=== PATIENT | male | born 1950 | race Caucasian/White ===

== ENCOUNTER → 2020-06-12 | Outpatient (CLI) | payer OTHER ==
--- NOTE | 2020-06-12 22:16 | MR ---
EXAMINATION TYPE: MR lumbar spine wo con DATE OF EXAM: 06/12/2020 COMPARISON: None HISTORY: Acute Right-Sided Low Back Pain TECHNIQUE: Multiplanar, multisequence images of the lumbar spine were acquired. T12-L1: Small left posterior paracentral disc herniation causes minimal anterior mass effect on the t hecal sac. L1-L2: Posterior broad-based disc bulge causes mild anterior mass effect on the thecal sac. No signif icant foraminal encroachment or spinal stenosis. L2-L3: Posterior extension endplate disc complex results in some mild anterior mass effect on the the omar sac. No significant spinal stenosis. There is some facet arthropathy change. Circumferential exte nsion endplate disc complex encroaches somewhat on the foramina. L3-L4: Posterior broad-based disc bulge causes mild anterior mass effect on the thecal sac. There is facet arthropathy change with hypertrophy ligamentum flavum. Circumferential extension of endplate di sc complex encroaches on the neural foramina. No significant spinal stenosis. L4-L5: Facet arthropathy with hypertrophy ligamentum flavum causes posterior lateral mass effect on t he thecal sac. Circumferential posterior disc bulge causes minimal anterior mass effect on the thecal sac. There is a trefoil appearance of the thecal sac. Listhesis contributes cause bilateral foramina l encroachment. L5-S1: Posterior extension endplate disc complex causes anterior mass effect on the thecal sac. Circu mferential extension endplate disc complex results in bilateral foraminal encroachment. There is some facet arthropathy change. No significant spinal stenosis. Lumbar segments are intact. No paraspinal masses are identified. Conus medullaris has a normal appe arance. Anterolisthesis grade 1 L4-5, retrolisthesis grade 1 L5-S1. There is multilevel spondylosis w ith endplate discogenic marrow signal change. Large hemangioma present within the L3 vertebral body, Schmorl's node present inferior endplate of L1. Loss of disc height and signal is present at interver tebral levels. Parapelvic cysts are present within the left kidney. Diverticular changes extensive in the sigmoid colon. Probable geode present within the acetabular roof of the right hip. There are ost eoarthritic changes with marginal spurring and joint space loss within both hips. Subchondral geode f ormation present within the femoral head on the left. IMPRESSION: Degenerative disc disease, facet arthropathy, foraminal encroachment as described. Osteoarthritis wit hin the hips.
== END | disposition home or self-care (01) ==
LOC: RADMRIMAIN 17:24
PROVIDERS: ATTEND Orthopaedic Surgery
DX: M51.36 Other intervertebral disc degeneration, lumbar region (principal); M47.816 Spondylosis without myelopathy or radiculopathy, lumbar region
CPT/HCPCS: 72148

== ENCOUNTER 2021-11-22 12:40 | Emergency (ER) | payer MEDICARE ==
[2021-11-22 12:55] VITALS: RESP 18; TEMP 97
--- NOTE | 2021-11-22 13:39 | ED ---
General Adult HPI - General Source: patient, EMS Limitations: altered mental status <PeegeorgeAleshae D - Last Filed: 11/22/21 13:42> <Shankar Roa - Last Filed: 11/23/21 05:20> - General Chief complaint: Psychiatric Symptoms Stated complaint: dementia/ mental health Time Seen by Provider: 11/22/21 13:01 - History of Present Illness Initial comments: Dictation was produced using [employer] dictation software. please excuse any gr ammatical, word or spelling errors. Chief Complaint: 71-year-old male sent into the emergency Department for aggressive behavior History of Present Illness: Patient 71-year-old male who has past medical history of stroke, dementia and aggressive behavior. Normally his aggressive behavior is easily managed with Haldol and Ativan however today did not work. Patient normally gets aggressive after family friends and other visitors leave the premises. He is not a reliable historian. History of present illness obtained from Dr. Da Silva who called ahead. Dr. Da Silva is the physician at [facility]. She states that patient was real aggressive and combative with staff. There is concern about him and staff safety. Dr. Da Silva reports he is being sent here for psychiatric evaluation. Patient has history of dementia and stroke and at baseline is normally aggressive and combative. Unable to obtain ROS secondary to mental status. PHYSICAL EXAM: General Impression: Alert and oriented x1/4, not in acute distress HEENT: Normocephalic atraumatic, extra-ocular movements intact, pupils equal and reactive to light bilaterally, mucous membranes moist. Cardiovascular: Heart regular rate and rhythm Chest: Able to complete full sentences, no retractions, no tachypnea Abdomen: abdomen soft, non-tender, non-distended, no organomegaly Musculoskeletal: Pulses present and equal in all extremities, no peripheral edema Motor: no focal deficits noted Neurological: CN II-XII grossly intact, no focal motor or sensory deficits noted Skin: Intact with no visualized rashes Psych: Rambling Speech ED course: Patient is 69-year-old male presents to the emergency department for aggressive behavior. Patient has history of dementia and CVA and typically aggressive behavior. His aggressive behavior is usually managed with Haldol and Ativan however today patient became aggressive and those medications didn't work. There was concern of patient and staff safety. Vital signs upon arrival are within acceptable limits. EKG interpretation: Ventricular rate 89, sinus rhythm,. Interval to 34, QS 105, QTc 436. no QTC prolongation, no ST or T-wave changes noted. EKG compared to 09/05/2021 showing no changes. Overall, this EKG is unremarkable (Barney Arshad) - Related Data Home Medications Medication Instructions Recorded Confirmed ALPRAZolam [Xanax] 0.25 mg PO BID@0600,2200 11/22/21 11/22/21 ALPRAZolam [Xanax] 0.5 mg PO DAILY@1200 11/22/21 11/22/21 Acetaminophen Tab [Tylenol] 650 mg PO Q6H PRN 11/22/21 11/22/21 Aspirin EC [Ecotrin Low Dose] 81 mg PO DAILY 11/22/21 11/22/21 Atorvastatin [Lipitor] 40 mg PO HS 11/22/21 11/22/21 Clopidogrel [Plavix] 75 mg PO HS 11/22/21 11/22/21 Cyanocobalamin [Vitamin B-12] 500 mcg PO DAILY 11/22/21 11/22/21 Donepezil HCl [Aricept] 10 mg PO DAILY 11/22/21 11/22/21 Famotidine [Pepcid] 20 mg PO DAILY 11/22/21 11/22/21 Haldol 5mg/Ml 2.5 mg IM BID PRN 11/22/21 11/22/21 Lactose-Reduced Food [Ensure Plus] 240 ml PO BID@0900,2100 11/22/21 11/22/21 Megestrol [Megace] 800 mg PO DAILY 11/22/21 11/22/21 Melatonin 10 mg PO HS 11/22/21 11/22/21 Metoprolol Succinate [Toprol XL] 25 mg PO DAILY 11/22/21 11/22/21 Mirtazapine 7.5 mg PO DAILY@1700 11/22/21 11/22/21 QUEtiapine [SEROquel] 12.5 mg PO BID@0900,2100 11/22/21 11/22/21 Selsun Blue Shampoo 1 applic TOPICAL MOTH@2100 11/22/21 11/22/21 Sennosides [Senna] 8.6 mg PO HS PRN 11/22/21 11/22/21 Zguard 1 applic TOPICAL BID 11/22/21 11/22/21 Zguard 1 applic TOPICAL DAILY PRN 11/22/21 11/22/21 traZODone HCL 50 mg PO HS 11/22/21 11/22/21 Allergies Allergy/AdvReac Type Severity Reaction Status Date / Time No Known Allergies Allergy Verified 11/22/21 13:21 Review of Systems ROS Other: All systems not noted in ROS Statement are negative. <Barney Arshad - Last Filed: 11/22/21 13:42> ROS Other: All systems not noted in ROS Statement are negative. <Shankar Roa - Last Filed: 11/23/21 05:20> ROS Statement: Those systems with pertinent positive or pertinent negative responses have been documented in the HPI. Past Medical History Past Medical History: Unable to Obtain Additional Past Medical History / Comment(s): hemorrhoids History of Any Multi-Drug Resistant Organisms: None Reported Past Surgical History: Unable to Obtain Additional Past Surgical History / Comment(s): Hip Replacement Jul 2021 Past Psychological History: Unable to Obtain Smoking Status: Current every day smoker <Barney Arshad - Last Filed: 11/22/21 13:42> General Exam Limitations: altered mental status <Barney Arshad - Last Filed: 11/22/21 13:42> Course Vital Signs 11/22/21 11/22/21 11/22/21 12:43 12:56 14:10 Temperature 97.0 F L Pulse Rate 98 88 Respiratory 18 18 Rate Blood Pressure 89/65 108/69 O2 Sat by Pulse 95 97 Oximetry 11/22/21 11/22/21 15:42 17:13 Temperature Pulse Rate 86 Respiratory 18 Rate Blood Pressure 116/86 121/67 O2 Sat by Pulse 97 Oximetry Medical Decision Making - Lab Data Result diagrams: 11/22/21 13:34 11/22/21 13:34 <Shankar Roa - Last Filed: 11/23/21 05:20> - Medical Decision Making 71-year-old male who was seen and evaluated by psychiatry here in the ER. Patient is stable for discharge home with medically clear for psychiatric evaluation. Patient seen and evaluated and can be discharged home (Roskopp,Shankar B) - Lab Data Lab Results 11/22/21 11/22/21 11/22/21 Range/Units 13:34 13:34 13:35 WBC 11.0 H (3.8-10.6) k/uL RBC 4.30 (4.30-5.90) m/uL Hgb 13.9 (13.0-17.5) gm/dL Hct 41.4 (39.0-53.0) % MCV 96.3 (80.0-100.0) fL MCH 32.3 (25.0-35.0) pg MCHC 33.5 (31.0-37.0) g/dL RDW 15.4 (11.5-15.5) % Plt Count 214 (150-450) k/uL MPV 8.5 Neutrophils % 73 % Lymphocytes % 15 % Monocytes % 8 % Eosinophils % 2 % Basophils % 1 % Neutrophils # 8.0 H (1.3-7.7) k/uL Lymphocytes # 1.6 (1.0-4.8) k/uL Monocytes # 0.9 (0-1.0) k/uL Eosinophils # 0.2 (0-0.7) k/uL Basophils # 0.1 (0-0.2) k/uL Sodium 138 (137-145) mmol/L Potassium 3.8 (3.5-5.1) mmol/L Chloride 109 H (98-107) mmol/L Carbon Dioxide 23 (22-30) mmol/L Anion Gap 6 mmol/L BUN 10 (9-20) mg/dL Creatinine 0.94 (0.66-1.25) mg/dL Est GFR (CKD-EPI)AfAm >90 (>60 ml/min/1.73 sqM) Est GFR (CKD-EPI)NonAf 81 (>60 ml/min/1.73 sqM) Glucose 84 (74-99) mg/dL Calcium 8.9 (8.4-10.2) mg/dL Urine Color Urine Appearance (Clear) Urine pH (5.0-8.0) Ur Specific Strawberry (1.001-1.035) Urine Protein (Negative) Urine Glucose (UA) (Negative) Urine Ketones (Negative) Urine Blood (Negative) Urine Nitrite (Negative) Urine Bilirubin (Negative) Urine Urobilinogen (<2.0) mg/dL Ur Leukocyte Esterase (Negative) Urine RBC (0-5) /hpf Urine WBC (0-5) /hpf Ur Squamous Epith Cells (0-4) /hpf Urine Bacteria (None) /hpf Hyaline Casts (0-2) /lpf Urine Mucus (None) /hpf Urine Opiates Screen (NotDetected) Ur Oxycodone Screen (NotDetected) Urine Methadone Screen (NotDetected) Ur Propoxyphene Screen (NotDetected) Ur Barbiturates Screen (NotDetected) U Tricyclic Antidepress (NotDetected) Ur Phencyclidine Scrn (NotDetected) Ur Amphetamines Screen (NotDetected) U Methamphetamines Scrn (NotDetected) U Benzodiazepines Scrn (NotDetected) Urine Cocaine Screen (NotDetected) U Marijuana (THC) Screen (NotDetected) Coronavirus (PCR) Not Detected (Not Detectd) 11/22/21 Range/Units 14:26 WBC (3.8-10.6) k/uL RBC (4.30-5.90) m/uL Hgb (13.0-17.5) gm/dL Hct (39.0-53.0) % MCV (80.0-100.0) fL MCH (25.0-35.0) pg MCHC (31.0-37.0) g/dL RDW (11.5-15.5) % Plt Count (150-450) k/uL MPV Neutrophils % % Lymphocytes % % Monocytes % % Eosinophils % % Basophils % % Neutrophils # (1.3-7.7) k/uL Lymphocytes # (1.0-4.8) k/uL Monocytes # (0-1.0) k/uL Eosinophils # (0-0.7) k/uL Basophils # (0-0.2) k/uL Sodium (137-145) mmol/L Potassium (3.5-5.1) mmol/L Chloride (98-107) mmol/L Carbon Dioxide (22-30) mmol/L Anion Gap mmol/L BUN (9-20) mg/dL Creatinine (0.66-1.25) mg/dL Est GFR (CKD-EPI)AfAm (>60 ml/min/1.73 sqM) Est GFR (CKD-EPI)NonAf (>60 ml/min/1.73 sqM) Glucose (74-99) mg/dL Calcium (8.4-10.2) mg/dL Urine Color Yellow Urine Appearance Clear (Clear) Urine pH 6.5 (5.0-8.0) Ur Specific Strawberry 1.022 (1.001-1.035) Urine Protein 1+ H (Negative) Urine Glucose (UA) Negative (Negative) Urine Ketones Negative (Negative) Urine Blood Negative (Negative) Urine Nitrite Negative (Negative) Urine Bilirubin Negative (Negative) Urine Urobilinogen <2.0 (<2.0) mg/dL Ur Leukocyte Esterase Negative (Negative) Urine RBC 1 (0-5) /hpf Urine WBC 4 (0-5) /hpf Ur Squamous Epith Cells 1 (0-4) /hpf Urine Bacteria Rare H (None) /hpf Hyaline Casts 22 H (0-2) /lpf Urine Mucus Many H (None) /hpf Urine Opiates Screen Not Detected (NotDetected) Ur Oxycodone Screen Not Detected (NotDetected) Urine Methadone Screen Not Detected (NotDetected) Ur Propoxyphene Screen Not Detected (NotDetected) Ur Barbiturates Screen Not Detected (NotDetected) U Tricyclic Antidepress Not Detected (NotDetected) Ur Phencyclidine Scrn Not Detected (NotDetected) Ur Amphetamines Screen Not Detected (NotDetected) U Methamphetamines Scrn Not Detected (NotDetected) U Benzodiazepines Scrn Detected H (NotDetected) Urine Cocaine Screen Not Detected (NotDetected) U Marijuana (THC) Screen Not Detected (NotDetected) Coronavirus (PCR) (Not Detectd) Disposition <Barney Arshad D - Last Filed: 11/22/21 13:42> Is patient prescribed a controlled substance at d/c from ED?: No <Shankar Roa - Last Filed: 11/23/21 05:20> Clinical Impression: Mood disorder Disposition: HOME SELF-CARE Condition: Fair Instructions (If sedation given, give patient instructions): Mood Disorders ( ED) Referrals: Margaret Da Silva MD [Primary Care Provider] - 1-2 days
[2021-11-22] MEDS ORDERED: SODIUM CHLORIDE 0.9% 1,000 ML IV STA (13:42)
[2021-11-22 13:54] LABS: Basophils # (A) 0.1 k/uL (0-0.2); Basophils % (A) 1 %; Eosinophils # (A) 0.2 k/uL (0-0.7); Eosinophils % (A) 2 %; HCT 41.4 % (39.0-53.0); HGB 13.9 gm/dL (13.0-17.5); Lymphocytes # (A) 1.6 k/uL (1.0-4.8); Lymphocytes % (A) 15 %; MCH 32.3 pg (25.0-35.0); MCHC 33.5 g/dL (31.0-37.0); MCV 96.3 fL (80.0-100.0); Mean Platelet Volume 8.5; Monocytes # (A) 0.9 k/uL (0-1.0); Monocytes % (A) 8 %; Neutrophils % (A) 73 %; Platelet Count 214 k/uL (150-450); RDW 15.4 % (11.5-15.5)
[2021-11-22 14:12] LABS: African American GFR (CKD) >90 (>60 ml/min/1.73 sqM); Anion Gap 6 mmol/L; Blood Urea Nitrogen 10 mg/dL (9-20); Calcium 8.9 mg/dL (8.4-10.2); Carbon Dioxide 23 mmol/L (22-30); Chloride 109 mmol/L (98-107); Glucose 84 mg/dL (74-99); Non-African American GFR(CKD) 81 (>60 ml/min/1.73 sqM); Potassium 3.8 mmol/L (3.5-5.1); Sodium 138 mmol/L (137-145)
--- NOTE | 2021-11-22 14:29 | CT ---
EXAMINATION TYPE: CT brain wo con DATE OF EXAM: 11/22/2021 HISTORY: Altered mental status CT DLP: 1104.4 mGycm. Automated Exposure Control for Dose Reduction was Utilized. TECHNIQUE: CT scan of the head is performed without contrast. COMPARISON: CT brain September 05, 2021. FINDINGS: There is no acute intracranial hemorrhage or midline shift identified. There is mild diff use ventricular and sulcal prominence consistent with diffuse age-related cerebral atrophy. There is mild low-attenuation in the periventricular white matter consistent with chronic small vessel ischem ic change. There is now old infarct or focal encephalomalacia in the left temporoparietal region. Demarco e dependent opacification or fluid in the left maxillary sinus redemonstrated. Globes are intact bi laterally. IMPRESSION: No acute intracranial hemorrhage or midline shift. There is mild diffuse age-related ce rebral atrophy and chronic small vessel ischemic change redemonstrated. Old infarct left parietal te mporal region now present.
[2021-11-22 14:50] LABS: Appearance,Urine Clear (Clear); Bacteria,Urine Rare /hpf; Bilirubin,Urine Negative (Negative); Blood,Urine Negative (Negative); Color,Urine Yellow; Glucose,Urine (UA) Negative (Negative); Hyaline Casts,Urine 22 /lpf (0-2); Ketones,Urine Negative (Negative); Leukocyte Esterase,Urine Negative (Negative); Mucus,Urine Many /hpf; Nitrite,Urine Negative (Negative); PH, Urine 6.5 (5.0-8.0); Protein,Urine 1+ (Negative); RBC,Urine 1 /hpf (0-5); Specific Gravity,Urine 1.022 (1.001-1.035); Squamous Epithelial Cell,Urine 1 /hpf (0-4); Urobilinogen,Urine <2.0 mg/dL (<2.0); WBC,Urine 4 /hpf (0-5)
[2021-11-22 15:08] LABS: Amphetamine Screen,Urine Not Detected (NotDetected); Barbiturate Screen,Urine Not Detected (NotDetected); Benzodiazepines Screen,Urine Detected (NotDetected); Cocaine Screen,Urine Not Detected (NotDetected); Methadone Screen, Urine Not Detected (NotDetected); Opiate Screen,Urine Not Detected (NotDetected); Oxycodone Screen, Urine Not Detected (NotDetected); Phencyclidine Screen,Urine Not Detected (NotDetected); Tricyclic Antidepressant,Urine Not Detected (NotDetected); Urn Cannabinoid Scrn Not Detected (NotDetected)
[2021-11-22 15:43] VITALS: PULSE 86
[2021-11-22 17:14] VITALS: BP 121/67
== END 2021-11-22 22:48 | disposition home or self-care (01) ==
LOC: EC 12:40
DX: F39 Unspecified mood [affective] disorder (principal); F03.90 Unspecified dementia, unspecified severity, without behavioral disturbance, psychotic disturbance, mood disturbance, and anxiety; F17.200 Nicotine dependence, unspecified, uncomplicated; Z20.822 Contact with and (suspected) exposure to COVID-19; Z79.82 Long term (current) use of aspirin; Z79.02 Long term (current) use of antithrombotics/antiplatelets
CPT/HCPCS: 36415; 70450; 80048; 80306; 81001; 82075; 85025; 87635; 93005; 96360; 96361; 99285

== ENCOUNTER 2021-11-23 10:56 | Emergency (ER) | payer MEDICARE ==
--- NOTE | 2021-11-23 13:48 | ED ---
General Adult HPI - General Source: patient, EMS, RN notes reviewed, old records reviewed Mode of arrival: EMS Limitations: altered mental status <Shankar Davila - Last Filed: 11/23/21 14:50> <Zachary Serrato - Last Filed: 11/25/21 12:42> - General Chief complaint: Psychiatric Symptoms Stated complaint: Mental Health Eval. Time Seen by Provider: 11/23/21 11:00 - History of Present Illness Initial comments: This is a 71-year-old male who presents emergency Department from the prison. Dr. Da Silva sent the patient in even though the patient was in the emergency department yesterday and discharged back to facility the patient continues to have episodes where he is getting violent with staff and Dr. Thakur wanted the patient to go to a psychiatric facility and she believes [facility] is willing to take the patient if they come to the emergency department first so she sent him in. Patient himself is alert and oriented 0 so is unable to give any history we have no further history at this time. (Shankar Davila) - Related Data Home Medications Medication Instructions Recorded Confirmed ALPRAZolam [Xanax] 0.5 mg PO Q8H 11/22/21 11/23/21 Acetaminophen Tab [Tylenol] 650 mg PO Q6H PRN 11/22/21 11/23/21 Aspirin EC [Ecotrin Low Dose] 81 mg PO DAILY 11/22/21 11/23/21 Atorvastatin [Lipitor] 40 mg PO HS 11/22/21 11/23/21 Clopidogrel [Plavix] 75 mg PO HS 11/22/21 11/23/21 Cyanocobalamin [Vitamin B-12] 500 mcg PO DAILY 11/22/21 11/23/21 Donepezil HCl [Aricept] 10 mg PO DAILY 11/22/21 11/23/21 Famotidine [Pepcid] 20 mg PO DAILY 11/22/21 11/23/21 Haldol 5mg/Ml 2.5 mg IM BID PRN 11/22/21 11/23/21 Lactose-Reduced Food [Ensure Plus] 240 ml PO BID 11/22/21 11/23/21 Megestrol [Megace] 800 mg PO DAILY 11/22/21 11/23/21 Melatonin 10 mg PO HS 11/22/21 11/23/21 Metoprolol Succinate [Toprol XL] 25 mg PO DAILY 11/22/21 11/23/21 Mirtazapine 7.5 mg PO DAILY@1700 11/22/21 11/23/21 QUEtiapine [SEROquel] 12.5 mg PO BID 11/22/21 11/23/21 Selsun Blue Shampoo 1 applic TOPICAL MOTH@2100 11/22/21 11/23/21 Sennosides [Senna] 8.6 mg PO HS PRN 11/22/21 11/23/21 Zguard 1 applic TOPICAL BID 11/22/21 11/23/21 Zguard 1 applic TOPICAL DAILY PRN 11/22/21 11/23/21 traZODone HCL 50 mg PO HS 11/22/21 11/23/21 Divalproex ER [Depakote ER] 250 mg PO DAILY 11/23/21 11/23/21 Ketoconazole 2% Shampoo [Nizoral] 1 applic TOPICAL MOTH 11/23/21 11/23/21 Allergies Allergy/AdvReac Type Severity Reaction Status Date / Time No Known Allergies Allergy Verified 11/23/21 12:50 Review of Systems ROS Other: All systems not noted in ROS Statement are negative. <Shankar Davila - Last Filed: 11/23/21 14:50> ROS Other: All systems not noted in ROS Statement are negative. <Zachary Serrato - Last Filed: 11/25/21 12:42> ROS Statement: Those systems with pertinent positive or pertinent negative responses have been documented in the HPI. Past Medical History Past Medical History: Unable to Obtain, Dementia, Hyperlipidemia, Hypertension Additional Past Medical History / Comment(s): hemorrhoids, encephalopathy, cardiomyapothy, TIA History of Any Multi-Drug Resistant Organisms: None Reported Past Surgical History: Unable to Obtain Additional Past Surgical History / Comment(s): Hip Replacement Jul 2021 Past Psychological History: Depression Smoking Status: Current every day smoker Past Alcohol Use History: None Reported Past Drug Use History: None Reported <Shankar Davila - Last Filed: 11/23/21 14:50> General Exam Limitations: altered mental status <Shankar Davila - Last Filed: 11/23/21 14:50> - General Exam Comments Initial Comments: GENERAL: Patient is well-developed and well-nourished. Patient is nontoxic and well- hydrated and is in no acute distress. ENT: Neck is soft and supple. No significant lymphadenopathy is noted. Oropharynx is clear. Moist mucous membranes. Neck has full range of motion without eliciting any pain. EYES: The sclera were anicteric and conjunctiva were pink and moist. Extraocular movements were intact and pupils were equal round and reactive to light. Eyelids were unremarkable. PULMONARY: Unlabored respirations. Good breath sounds bilaterally. No audible rales rhonchi or wheezing was noted. CARDIOVASCULAR: There is a regular rate and rhythm without any murmurs gallops or rubs. ABDOMEN: Soft and nontender with normal bowel sounds. SKIN: Skin is clear with no lesions or rashes and otherwise unremarkable. NEUROLOGIC: Patient is alert and oriented 0. Cranial nerves II through XII are grossly intact. Motor and sensory are also intact. Normal speech, volume and content. Symmetrical smile. MUSCULOSKELETAL: Normal extremities with adequate strength and full range of motion. No lower extremity swelling or edema. No calf tenderness. LYMPHATICS: No significant lymphadenopathy is noted PSYCHIATRIC: Unable to assess. (Shankar Davila) Course Vital Signs 11/23/21 11/24/21 11/24/21 10:58 06:00 08:09 Temperature 98.4 F 98 F Pulse Rate 122 H 89 88 Respiratory 16 18 18 Rate Blood Pressure 114/87 117/84 121/81 O2 Sat by Pulse 97 96 96 Oximetry 11/24/21 11/24/21 11/24/21 12:05 16:24 16:25 Temperature Pulse Rate 89 77 77 Respiratory 16 10 L 20 Rate Blood Pressure 103/72 103/76 O2 Sat by Pulse 98 98 Oximetry 11/24/21 11/24/21 11/25/21 19:40 22:46 07:40 Temperature Pulse Rate 97 89 87 Respiratory 16 20 17 Rate Blood Pressure 125/87 99/72 110/77 O2 Sat by Pulse 98 100 99 Oximetry 11/25/21 11:46 Temperature Pulse Rate 94 Respiratory 17 Rate Blood Pressure 98/68 O2 Sat by Pulse 93 L Oximetry Medical Decision Making <Shankar Davila - Last Filed: 11/23/21 14:50> - Lab Data Result diagrams: 11/25/21 10:54 11/25/21 10:54 <Zachary Serrato - Last Filed: 11/25/21 12:42> - Medical Decision Making EPS evaluated the patient and determined the patient needed to be transferred to an inpatient facility. (Shankar Davila) Patient had tonic-clonic seizure in the emergency department this was witnessed. Laboratory studies were repeated as well as head CT. Laboratory studies reflect seizure activity without any other acute abnormality. He has a head CT which is negative for acute process. This seizure is secondary to being off both of his Depakote and his Xanax. He is given 2 mg of Ativan in the emergency department and his medications are started while he is awaiting transfer. The best disposition for this patient is geriatric psych. (Zachary Serrato) - Lab Data Lab Results 11/23/21 11/23/21 11/23/21 Range/Units 14:17 14:17 16:03 WBC (3.8-10.6) k/uL RBC (4.30-5.90) m/uL Hgb (13.0-17.5) gm/dL Hct (39.0-53.0) % MCV (80.0-100.0) fL MCH (25.0-35.0) pg MCHC (31.0-37.0) g/dL RDW (11.5-15.5) % Plt Count (150-450) k/uL MPV Neutrophils % % Lymphocytes % % Monocytes % % Eosinophils % % Basophils % % Neutrophils # (1.3-7.7) k/uL Lymphocytes # (1.0-4.8) k/uL Monocytes # (0-1.0) k/uL Eosinophils # (0-0.7) k/uL Basophils # (0-0.2) k/uL Hypochromasia Macrocytosis Sodium (137-145) mmol/L Potassium (3.5-5.1) mmol/L Chloride (98-107) mmol/L Carbon Dioxide (22-30) mmol/L Anion Gap mmol/L BUN (9-20) mg/dL Creatinine (0.66-1.25) mg/dL Est GFR (CKD-EPI)AfAm (>60 ml/min/1.73 sqM) Est GFR (CKD-EPI)NonAf (>60 ml/min/1.73 sqM) Glucose (74-99) mg/dL Calcium (8.4-10.2) mg/dL Magnesium (1.6-2.3) mg/dL Total Bilirubin (0.2-1.3) mg/dL AST (17-59) U/L ALT (4-49) U/L Alkaline Phosphatase (38-126) U/L Total Protein (6.3-8.2) g/dL Albumin (3.5-5.0) g/dL Urine Color Yellow Urine Appearance Cloudy (Clear) Urine pH 6.0 (5.0-8.0) Ur Specific [place] 1.019 (1.001-1.035) Urine Protein Trace H (Negative) Urine Glucose (UA) Negative (Negative) Urine Ketones Negative (Negative) Urine Blood Small H (Negative) Urine Nitrite Negative (Negative) Urine Bilirubin Negative (Negative) Urine Urobilinogen <2.0 (<2.0) mg/dL Ur Leukocyte Esterase Negative (Negative) Urine RBC 15 H (0-5) /hpf Urine WBC 3 (0-5) /hpf Calcium Oxalate Crystal Moderate H (None) /hpf Urine Bacteria Rare H (None) /hpf Hyaline Casts 3 H (0-2) /lpf Urine Mucus Many H (None) /hpf Urine Opiates Screen Not Detected (NotDetected) Ur Oxycodone Screen Not Detected (NotDetected) Urine Methadone Screen Not Detected (NotDetected) Ur Propoxyphene Screen Not Detected (NotDetected) Ur Barbiturates Screen Not Detected (NotDetected) Valproic Acid ug/mL U Tricyclic Antidepress Not Detected (NotDetected) Ur Phencyclidine Scrn Not Detected (NotDetected) Ur Amphetamines Screen Not Detected (NotDetected) U Methamphetamines Scrn Not Detected (NotDetected) U Benzodiazepines Scrn Detected H (NotDetected) Urine Cocaine Screen Not Detected (NotDetected) U Marijuana (THC) Screen Not Detected (NotDetected) Coronavirus (PCR) Not Detected (Not Detectd) 11/24/21 11/24/21 11/25/21 Range/Units 14:10 14:10 09:15 WBC 10.8 H 9.2 (3.8-10.6) k/uL RBC 4.16 L 4.28 L (4.30-5.90) m/uL Hgb 13.2 14.0 (13.0-17.5) gm/dL Hct 40.2 41.3 (39.0-53.0) % MCV 96.7 96.5 (80.0-100.0) fL MCH 31.9 32.7 (25.0-35.0) pg MCHC 32.9 33.8 (31.0-37.0) g/dL RDW 15.0 15.4 (11.5-15.5) % Plt Count 218 254 (150-450) k/uL MPV 7.8 7.6 Neutrophils % 67 68 % Lymphocytes % 20 20 % Monocytes % 9 8 % Eosinophils % 2 2 % Basophils % 1 1 % Neutrophils # 7.3 6.2 (1.3-7.7) k/uL Lymphocytes # 2.2 1.9 (1.0-4.8) k/uL Monocytes # 0.9 0.7 (0-1.0) k/uL Eosinophils # 0.2 0.1 (0-0.7) k/uL Basophils # 0.1 0.1 (0-0.2) k/uL Hypochromasia Macrocytosis Sodium 141 (137-145) mmol/L Potassium 3.8 (3.5-5.1) mmol/L Chloride 110 H (98-107) mmol/L Carbon Dioxide 22 (22-30) mmol/L Anion Gap 9 mmol/L BUN 7 L (9-20) mg/dL Creatinine 0.74 (0.66-1.25) mg/dL Est GFR (CKD-EPI)AfAm >90 (>60 ml/min/1.73 sqM) Est GFR (CKD-EPI)NonAf >90 (>60 ml/min/1.73 sqM) Glucose 74 (74-99) mg/dL Calcium 8.7 (8.4-10.2) mg/dL Magnesium (1.6-2.3) mg/dL Total Bilirubin 1.1 (0.2-1.3) mg/dL AST 53 (17-59) U/L ALT 46 (4-49) U/L Alkaline Phosphatase 206 H (38-126) U/L Total Protein 6.8 (6.3-8.2) g/dL Albumin 3.3 L (3.5-5.0) g/dL Urine Color Urine Appearance (Clear) Urine pH (5.0-8.0) Ur Specific [place] (1.001-1.035) Urine Protein (Negative) Urine Glucose (UA) (Negative) Urine Ketones (Negative) Urine Blood (Negative) Urine Nitrite (Negative) Urine Bilirubin (Negative) Urine Urobilinogen (<2.0) mg/dL Ur Leukocyte Esterase (Negative) Urine RBC (0-5) /hpf Urine WBC (0-5) /hpf Calcium Oxalate Crystal (None) /hpf Urine Bacteria (None) /hpf Hyaline Casts (0-2) /lpf Urine Mucus (None) /hpf Urine Opiates Screen (NotDetected) Ur Oxycodone Screen (NotDetected) Urine Methadone Screen (NotDetected) Ur Propoxyphene Screen (NotDetected) Ur Barbiturates Screen (NotDetected) Valproic Acid ug/mL U Tricyclic Antidepress (NotDetected) Ur Phencyclidine Scrn (NotDetected) Ur Amphetamines Screen (NotDetected) U Methamphetamines Scrn (NotDetected) U Benzodiazepines Scrn (NotDetected) Urine Cocaine Screen (NotDetected) U Marijuana (THC) Screen (NotDetected) Coronavirus (PCR) (Not Detectd) 11/25/21 11/25/21 11/25/21 Range/Units 09:15 10:54 10:54 WBC 15.6 H (3.8-10.6) k/uL RBC 4.27 L (4.30-5.90) m/uL Hgb 14.0 (13.0-17.5) gm/dL Hct 44.5 (39.0-53.0) % MCV 104.0 H D (80.0-100.0) fL MCH 32.7 (25.0-35.0) pg MCHC 31.4 (31.0-37.0) g/dL RDW 15.0 (11.5-15.5) % Plt Count 309 (150-450) k/uL MPV 8.2 Neutrophils % 58 % Lymphocytes % 28 % Monocytes % 9 % Eosinophils % 1 % Basophils % 1 % Neutrophils # 9.0 H (1.3-7.7) k/uL Lymphocytes # 4.4 (1.0-4.8) k/uL Monocytes # 1.4 H (0-1.0) k/uL Eosinophils # 0.1 (0-0.7) k/uL Basophils # 0.1 (0-0.2) k/uL Hypochromasia Marked Macrocytosis Moderate Sodium 140 146 H (137-145) mmol/L Potassium 3.5 3.3 L (3.5-5.1) mmol/L Chloride 111 H 109 H (98-107) mmol/L Carbon Dioxide 24 6 L* (22-30) mmol/L Anion Gap 5 31 mmol/L BUN 9 8 L (9-20) mg/dL Creatinine 0.77 0.96 (0.66-1.25) mg/dL Est GFR (CKD-EPI)AfAm >90 >90 (>60 ml/min/1.73 sqM) Est GFR (CKD-EPI)NonAf >90 79 (>60 ml/min/1.73 sqM) Glucose 102 H 118 H (74-99) mg/dL Calcium 8.8 9.4 (8.4-10.2) mg/dL Magnesium 2.0 (1.6-2.3) mg/dL Total Bilirubin 1.0 1.1 (0.2-1.3) mg/dL AST 48 62 H (17-59) U/L ALT 41 48 (4-49) U/L Alkaline Phosphatase 208 H 213 H (38-126) U/L Total Protein 7.4 8.2 (6.3-8.2) g/dL Albumin 3.6 4.2 (3.5-5.0) g/dL Urine Color Urine Appearance (Clear) Urine pH (5.0-8.0) Ur Specific [place] (1.001-1.035) Urine Protein (Negative) Urine Glucose (UA) (Negative) Urine Ketones (Negative) Urine Blood (Negative) Urine Nitrite (Negative) Urine Bilirubin (Negative) Urine Urobilinogen (<2.0) mg/dL Ur Leukocyte Esterase (Negative) Urine RBC (0-5) /hpf Urine WBC (0-5) /hpf Calcium Oxalate Crystal (None) /hpf Urine Bacteria (None) /hpf Hyaline Casts (0-2) /lpf Urine Mucus (None) /hpf Urine Opiates Screen (NotDetected) Ur Oxycodone Screen (NotDetected) Urine Methadone Screen (NotDetected) Ur Propoxyphene Screen (NotDetected) Ur Barbiturates Screen (NotDetected) Valproic Acid <10.0 ug/mL U Tricyclic Antidepress (NotDetected) Ur Phencyclidine Scrn (NotDetected) Ur Amphetamines Screen (NotDetected) U Methamphetamines Scrn (NotDetected) U Benzodiazepines Scrn (NotDetected) Urine Cocaine Screen (NotDetected) U Marijuana (THC) Screen (NotDetected) Coronavirus (PCR) (Not Detectd) Disposition Time of Disposition: 14:52 <Shankar Davila - Last Filed: 11/23/21 14:50> <Zachary Serrato - Last Filed: 11/25/21 12:42> Clinical Impression: Acute psychosis Disposition: TRANSFER TO PSYCH HOSP/UNIT Referrals: Margaret Da Silva MD [Primary Care Provider] - 1-2 days
[2021-11-23 14:39] LABS: Amphetamine Screen,Urine Not Detected (NotDetected); Barbiturate Screen,Urine Not Detected (NotDetected); Benzodiazepines Screen,Urine Detected (NotDetected); Cocaine Screen,Urine Not Detected (NotDetected); Methadone Screen, Urine Not Detected (NotDetected); Opiate Screen,Urine Not Detected (NotDetected); Oxycodone Screen, Urine Not Detected (NotDetected); Phencyclidine Screen,Urine Not Detected (NotDetected); Tricyclic Antidepressant,Urine Not Detected (NotDetected); Urn Cannabinoid Scrn Not Detected (NotDetected)
[2021-11-24 14:21] LABS: Basophils # (A) 0.1 k/uL (0-0.2); Basophils % (A) 1 %; Eosinophils # (A) 0.2 k/uL (0-0.7); Eosinophils % (A) 2 %; HCT 40.2 % (39.0-53.0); HGB 13.2 gm/dL (13.0-17.5); Lymphocytes # (A) 2.2 k/uL (1.0-4.8); Lymphocytes % (A) 20 %; MCH 31.9 pg (25.0-35.0); MCHC 32.9 g/dL (31.0-37.0); MCV 96.7 fL (80.0-100.0); Mean Platelet Volume 7.8; Monocytes # (A) 0.9 k/uL (0-1.0); Monocytes % (A) 9 %; Neutrophils # (A) 7.3 k/uL (1.3-7.7); Neutrophils % (A) 67 %; Platelet Count 218 k/uL (150-450); RBC 4.16 m/uL (4.30-5.90); WBC 10.8 k/uL (3.8-10.6)
[2021-11-24 14:34] LABS: ALT 46 U/L (4-49); AST 53 U/L (17-59); African American GFR (CKD) >90 (>60 ml/min/1.73 sqM); Albumin 3.3 g/dL (3.5-5.0); Alkaline Phosphatase 206 U/L (38-126); Anion Gap 9 mmol/L; Blood Urea Nitrogen 7 mg/dL (9-20); Calcium 8.7 mg/dL (8.4-10.2); Carbon Dioxide 22 mmol/L (22-30); Chloride 110 mmol/L (98-107); Glucose 74 mg/dL (74-99); Non-African American GFR(CKD) >90 (>60 ml/min/1.73 sqM); Potassium 3.8 mmol/L (3.5-5.1); Sodium 141 mmol/L (137-145); Total Bilirubin 1.1 mg/dL (0.2-1.3); Total Protein 6.8 g/dL (6.3-8.2)
[2021-11-24 15:11] LABS: Appearance,Urine Cloudy (Clear); Bacteria,Urine Rare /hpf; Bilirubin,Urine Negative (Negative); Blood,Urine Small (Negative); Calcium Oxalate Crystals,Urine Moderate /hpf; Color,Urine Yellow; Glucose,Urine (UA) Negative (Negative); Hyaline Casts,Urine 3 /lpf (0-2); Ketones,Urine Negative (Negative); Leukocyte Esterase,Urine Negative (Negative); Mucus,Urine Many /hpf; Nitrite,Urine Negative (Negative); Protein,Urine Trace (Negative); RBC,Urine 15 /hpf (0-5); Specific Gravity,Urine 1.019 (1.001-1.035); Urobilinogen,Urine <2.0 mg/dL (<2.0); WBC,Urine 3 /hpf (0-5)
[2021-11-25 09:26] LABS: Basophils # (A) 0.1 k/uL (0-0.2); Basophils % (A) 1 %; Eosinophils # (A) 0.1 k/uL (0-0.7); Eosinophils % (A) 2 %; HCT 41.3 % (39.0-53.0); Lymphocytes # (A) 1.9 k/uL (1.0-4.8); Lymphocytes % (A) 20 %; MCH 32.7 pg (25.0-35.0); MCHC 33.8 g/dL (31.0-37.0); MCV 96.5 fL (80.0-100.0); Mean Platelet Volume 7.6; Monocytes # (A) 0.7 k/uL (0-1.0); Monocytes % (A) 8 %; Neutrophils # (A) 6.2 k/uL (1.3-7.7); Neutrophils % (A) 68 %; Platelet Count 254 k/uL (150-450); RBC 4.28 m/uL (4.30-5.90); RDW 15.4 % (11.5-15.5); WBC 9.2 k/uL (3.8-10.6)
[2021-11-25 09:39] LABS: ALT 41 U/L (4-49); AST 48 U/L (17-59); African American GFR (CKD) >90 (>60 ml/min/1.73 sqM); Albumin 3.6 g/dL (3.5-5.0); Alkaline Phosphatase 208 U/L (38-126); Anion Gap 5 mmol/L; Blood Urea Nitrogen 9 mg/dL (9-20); Calcium 8.8 mg/dL (8.4-10.2); Carbon Dioxide 24 mmol/L (22-30); Chloride 111 mmol/L (98-107); Glucose 102 mg/dL (74-99); Non-African American GFR(CKD) >90 (>60 ml/min/1.73 sqM); Potassium 3.5 mmol/L (3.5-5.1); Sodium 140 mmol/L (137-145); Total Protein 7.4 g/dL (6.3-8.2)
[2021-11-25] MEDS ORDERED: LORazepam 2 MG/ML INJ IV STA ×2 (10:44→14:42)
[2021-11-25] MEDS ORDERED: SODIUM CHLORIDE 0.9% 500 ML 500 ML IV ONE (10:45)
[2021-11-25 11:08] LABS: Basophils # (A) 0.1 k/uL (0-0.2); Basophils % (A) 1 %; Eosinophils # (A) 0.1 k/uL (0-0.7); Eosinophils % (A) 1 %; HCT 44.5 % (39.0-53.0); Hypochromasia Marked; Lymphocytes # (A) 4.4 k/uL (1.0-4.8); Lymphocytes % (A) 28 %; MCH 32.7 pg (25.0-35.0); MCHC 31.4 g/dL (31.0-37.0); Macrocytosis Moderate; Mean Platelet Volume 8.2; Monocytes # (A) 1.4 k/uL (0-1.0); Monocytes % (A) 9 %; Neutrophils % (A) 58 %; Platelet Count 309 k/uL (150-450); RBC 4.27 m/uL (4.30-5.90); WBC 15.6 k/uL (3.8-10.6)
[2021-11-25 11:29] LABS: AST 62 U/L (17-59); African American GFR (CKD) >90 (>60 ml/min/1.73 sqM); Albumin 4.2 g/dL (3.5-5.0); Alkaline Phosphatase 213 U/L (38-126); Anion Gap 31 mmol/L; Blood Urea Nitrogen 8 mg/dL (9-20); Calcium 9.4 mg/dL (8.4-10.2); Chloride 109 mmol/L (98-107); Glucose 118 mg/dL (74-99); Non-African American GFR(CKD) 79 (>60 ml/min/1.73 sqM); Potassium 3.3 mmol/L (3.5-5.1); Sodium 146 mmol/L (137-145); Total Bilirubin 1.1 mg/dL (0.2-1.3); Total Protein 8.2 g/dL (6.3-8.2)
[2021-11-25 11:34] LABS: Valproic Acid (Depakene) <10.0 ug/mL
[2021-11-25 11:36] LABS: ALT 48 U/L (4-49)
--- NOTE | 2021-11-25 11:50 | CT ---
EXAMINATION TYPE: CT brain wo con DATE OF EXAM: 11/25/2021 HISTORY: new onset seizure CT DLP: 1134.5 mGycm. Automated Exposure Control for Dose Reduction was Utilized. TECHNIQUE: CT scan of the head is performed without contrast. COMPARISON: CT brain 3 days ago. MRI brain September 06, 2021 FINDINGS: There is no acute intracranial hemorrhage or midline shift identified. There is mild to m oderate diffuse ventricular and sulcal prominence consistent with diffuse age-related cerebral atroph y. There is mild low-attenuation in the periventricular white matter consistent with chronic small v essel ischemic change. 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 Patchy fluid left maxillary sinus redemonstrated. IMPRESSION: As above. No significant change from most recent CT.
[2021-11-25 11:56] LABS: Carbon Dioxide 6 mmol/L (22-30)
[2021-11-25] MEDS ORDERED: ACETAMINOPHEN TAB 325 MG TAB PO PRN (12:18)
[2021-11-25] MEDS ORDERED: HALOPERIDOL LACTATE 5 MG/ML 1 ML VIAL IM PRN (12:18)
[2021-11-25] MEDS ORDERED: ALPRAZolam 0.5 MG TAB PO SCH ×2 (12:30→22:00)
[2021-11-25 13:08] VITALS: RESP 18
[2021-11-25] MEDS: MIRTAZAPINE 15 MG TAB PO SCH (20:04)
[2021-11-25] MEDS: QUEtiapine 25 MG TAB PO SCH (20:05)
[2021-11-25] MEDS ORDERED: ATORVASTATIN 40 MG TAB PO SCH (21:00)
[2021-11-25] MEDS ORDERED: traZODone HCL 50 MG TAB PO SCH (21:00)
[2021-11-25] MEDS ORDERED: MELATONIN 5 MG TABLET PO SCH (21:00)
[2021-11-25] MEDS ORDERED: CLOPIDOGREL 75 MG TAB PO SCH (21:00)
[2021-11-25 22:38] VITALS: BP 117/80; PULSE 89; TEMP 98.5
[2021-11-26] MEDS ORDERED: DIVALPROEX ER 250 MG TAB.ER.24H PO SCH (09:00)
[2021-11-26] MEDS ORDERED: DONEPEZIL 10 MG TAB PO SCH (09:00)
[2021-11-26] MEDS ORDERED: CYANOCOBALAMIN 500 MCG TAB PO SCH (09:00)
[2021-11-26] MEDS ORDERED: ASPIRIN 81 MG PO SCH (09:00)
[2021-11-26] MEDS ORDERED: ALPRAZolam 0.5 MG TAB PO SCH (09:00)
[2021-11-26] MEDS ORDERED: METOPROLOL SUCCINATE (ER) 25 MG TAB.ER.24H PO SCH (09:00)
[2021-11-26] MEDS ORDERED: FAMOTIDINE 20 MG TAB PO SCH (09:00)
[2021-11-26] MEDS: MIRTAZAPINE 15 MG TAB PO SCH (09:02)
[2021-11-26] MEDS: QUEtiapine 25 MG TAB PO SCH (09:03)
== END 2021-11-26 11:15 ==
LOC: EC 10:56
DX: F23 Brief psychotic disorder (principal); F03.90 Unspecified dementia, unspecified severity, without behavioral disturbance, psychotic disturbance, mood disturbance, and anxiety; E78.5 Hyperlipidemia, unspecified; I10 Essential (primary) hypertension; F32.A Depression, unspecified; F17.200 Nicotine dependence, unspecified, uncomplicated; Z79.82 Long term (current) use of aspirin; Z79.02 Long term (current) use of antithrombotics/antiplatelets; Z20.822 Contact with and (suspected) exposure to COVID-19
CPT/HCPCS: 99285; 96374; 96376; 96361; 96372; 36415; 80053; 85025; 81001; 80306; 87635; J2060; J1630

== ENCOUNTER 2022-02-05 03:39 | Emergency (ER) | payer BC, MEDICARE ==
[2022-02-05] MEDS ORDERED: SODIUM CHLORIDE 0.9% 1,000 ML IV STA (03:46)
--- NOTE | 2022-02-05 03:46 | ED ---
Altered Mental Status HPI - General Stated Complaint: Altered Mental Status Time Seen by Provider: 02/05/22 03:43 Source: RN notes reviewed, old records reviewed Limitations: altered mental status - History of Present Illness Initial Comments: This is a 71-year-old male for acute altered mental status weakness lightheadedness and dizziness. Patient is a poor story patient today from EMS and patient's chart prior visits for mental status here at this hospital patient himself does not give any specific complaints here in the ER MD Complaint: altered mental status, decreased responsiveness, weakness -: days(s) Severity: moderate Consistency of Symptoms: waxing and waning, getting worse Context: history of similar presentation Associated Symptoms: weakness Treatments Prior to Arrival: IV fluid, oxygen - Related Data Home Medications Medication Instructions Recorded Confirmed ALPRAZolam [Xanax] 0.5 mg PO Q8H 11/22/21 11/23/21 Acetaminophen Tab [Tylenol] 650 mg PO Q6H PRN 11/22/21 11/23/21 Aspirin EC [Ecotrin Low Dose] 81 mg PO DAILY 11/22/21 11/23/21 Atorvastatin [Lipitor] 40 mg PO HS 11/22/21 11/23/21 Clopidogrel [Plavix] 75 mg PO HS 11/22/21 11/23/21 Cyanocobalamin [Vitamin B-12] 500 mcg PO DAILY 11/22/21 11/23/21 Donepezil HCl [Aricept] 10 mg PO DAILY 11/22/21 11/23/21 Famotidine [Pepcid] 20 mg PO DAILY 11/22/21 11/23/21 Haldol 5mg/Ml 2.5 mg IM BID PRN 11/22/21 11/23/21 Lactose-Reduced Food [Ensure Plus] 240 ml PO BID 11/22/21 11/23/21 Megestrol [Megace] 800 mg PO DAILY 11/22/21 11/23/21 Melatonin 10 mg PO HS 11/22/21 11/23/21 Metoprolol Succinate [Toprol XL] 25 mg PO DAILY 11/22/21 11/23/21 Mirtazapine 7.5 mg PO DAILY@1700 11/22/21 11/23/21 QUEtiapine [SEROquel] 12.5 mg PO BID 11/22/21 11/23/21 Selsun Blue Shampoo 1 applic TOPICAL MOTH@2100 11/22/21 11/23/21 Sennosides [Senna] 8.6 mg PO HS PRN 11/22/21 11/23/21 Zguard 1 applic TOPICAL BID 11/22/21 11/23/21 Zguard 1 applic TOPICAL DAILY PRN 11/22/21 11/23/21 traZODone HCL 50 mg PO HS 11/22/21 11/23/21 Divalproex ER [Depakote ER] 250 mg PO DAILY 11/23/21 11/23/21 Ketoconazole 2% Shampoo [Nizoral] 1 applic TOPICAL MOTH 11/23/21 11/23/21 Allergies Allergy/AdvReac Type Severity Reaction Status Date / Time No Known Allergies Allergy Verified 11/23/21 12:50 Review of Systems ROS Statement: Those systems with pertinent positive or pertinent negative responses have been documented in the HPI. ROS Other: All systems not noted in ROS Statement are negative. Past Medical History Past Medical History: Unable to Obtain, Dementia, Hyperlipidemia, Hypertension Additional Past Medical History / Comment(s): hemorrhoids, encephalopathy, cardiomyapothy, TIA History of Any Multi-Drug Resistant Organisms: None Reported Past Surgical History: Unable to Obtain Additional Past Surgical History / Comment(s): Hip Replacement Jul 2021 Past Psychological History: Depression Smoking Status: Current every day smoker Past Alcohol Use History: None Reported Past Drug Use History: None Reported General Exam General appearance: alert, in no apparent distress Head exam: Present: atraumatic, normocephalic, normal inspection Eye exam: Present: normal appearance, PERRL, EOMI. Absent: scleral icterus, conjunctival injection, periorbital swelling ENT exam: Present: normal exam, mucous membranes moist Neck exam: Present: normal inspection. Absent: tenderness, meningismus, lymphadenopathy Respiratory exam: Present: normal lung sounds bilaterally. Absent: respiratory distress, wheezes, rales, rhonchi, stridor Cardiovascular Exam: Present: regular rate, normal rhythm, normal heart sounds. Absent: systolic murmur, diastolic murmur, rubs, gallop, clicks GI/Abdominal exam: Present: soft, normal bowel sounds. Absent: distended, tenderness, guarding, rebound, rigid Extremities exam: Present: normal inspection, full ROM, normal capillary refill. Absent: tenderness, pedal edema, joint swelling, calf tenderness Back exam: Present: normal inspection Neurological exam: Present: alert, oriented X3, CN II-XII intact Psychiatric exam: Present: normal affect, normal mood Skin exam: Present: warm, dry, intact, normal color. Absent: rash Course Vital Signs 02/05/22 02/05/22 02/05/22 03:40 05:26 06:13 Temperature 98.2 F 98.2 F Pulse Rate 70 105 H 106 H Respiratory 18 18 18 Rate Blood Pressure 111/85 137/96 114/75 O2 Sat by Pulse 97 95 95 Oximetry 02/05/22 02/05/22 07:51 08:33 Temperature 98.2 F Pulse Rate 116 H Respiratory 18 18 Rate Blood Pressure 106/67 O2 Sat by Pulse 97 Oximetry - Reevaluation(s) Reevaluation #1: 02/05/22 Medical record is reviewed Reevaluation #2: 02/05/22 Patient informed of results and questions answered Reevaluation #3: 02/05/22 Patient has no real change in symptoms here in the ER Medical Decision Making - Medical Decision Making 71 male to the emergency department for evaluation for altered mental status no acute findings here in the ER patient can be discharged home - Lab Data Result diagrams: 02/05/22 03:51 02/05/22 03:51 Lab Results 02/05/22 02/05/22 02/05/22 Range/Units 03:51 03:51 03:51 WBC 16.7 H (3.8-10.6) k/uL RBC 4.26 L (4.30-5.90) m/uL Hgb 13.3 (13.0-17.5) gm/dL Hct 42.9 (39.0-53.0) % MCV 100.8 H (80.0-100.0) fL MCH 31.3 (25.0-35.0) pg MCHC 31.0 (31.0-37.0) g/dL RDW 12.1 (11.5-15.5) % Plt Count 238 (150-450) k/uL MPV 7.7 Neutrophils % 80 % Lymphocytes % 10 % Monocytes % 7 % Eosinophils % 1 % Basophils % 1 % Neutrophils # 13.3 H (1.3-7.7) k/uL Lymphocytes # 1.7 (1.0-4.8) k/uL Monocytes # 1.2 H (0-1.0) k/uL Eosinophils # 0.2 (0-0.7) k/uL Basophils # 0.1 (0-0.2) k/uL Sodium 137 (137-145) mmol/L Potassium 4.2 (3.5-5.1) mmol/L Chloride 104 (98-107) mmol/L Carbon Dioxide 24 (22-30) mmol/L Anion Gap 9 mmol/L BUN 13 (9-20) mg/dL Creatinine 0.89 (0.66-1.25) mg/dL Est GFR (CKD-EPI)AfAm >90 (>60 ml/min/1.73 sqM) Est GFR (CKD-EPI)NonAf 86 (>60 ml/min/1.73 sqM) Glucose 114 H (74-99) mg/dL Calcium 9.1 (8.4-10.2) mg/dL Phosphorus 3.2 (2.5-4.5) mg/dL Magnesium 1.7 (1.6-2.3) mg/dL Total Bilirubin 0.6 (0.2-1.3) mg/dL AST 40 (17-59) U/L ALT 29 (4-49) U/L Alkaline Phosphatase 180 H (38-126) U/L Total Protein 7.3 (6.3-8.2) g/dL Albumin 3.7 (3.5-5.0) g/dL Urine Color Yellow Urine Appearance Clear (Clear) Urine pH 6.0 (5.0-8.0) Ur Specific [place] 1.019 (1.001-1.035) Urine Protein Negative (Negative) Urine Glucose (UA) Negative (Negative) Urine Ketones Negative (Negative) Urine Blood Negative (Negative) Urine Nitrite Negative (Negative) Urine Bilirubin Negative (Negative) Urine Urobilinogen <2.0 (<2.0) mg/dL Ur Leukocyte Esterase Negative (Negative) Influenza Type A (PCR) (Not Detectd) Influenza Type B (PCR) (Not Detectd) RSV (PCR) (Not Detectd) SARS-CoV-2 (PCR) (Not Detectd) 02/05/22 Range/Units 05:24 WBC (3.8-10.6) k/uL RBC (4.30-5.90) m/uL Hgb (13.0-17.5) gm/dL Hct (39.0-53.0) % MCV (80.0-100.0) fL MCH (25.0-35.0) pg MCHC (31.0-37.0) g/dL RDW (11.5-15.5) % Plt Count (150-450) k/uL MPV Neutrophils % % Lymphocytes % % Monocytes % % Eosinophils % % Basophils % % Neutrophils # (1.3-7.7) k/uL Lymphocytes # (1.0-4.8) k/uL Monocytes # (0-1.0) k/uL Eosinophils # (0-0.7) k/uL Basophils # (0-0.2) k/uL Sodium (137-145) mmol/L Potassium (3.5-5.1) mmol/L Chloride (98-107) mmol/L Carbon Dioxide (22-30) mmol/L Anion Gap mmol/L BUN (9-20) mg/dL Creatinine (0.66-1.25) mg/dL Est GFR (CKD-EPI)AfAm (>60 ml/min/1.73 sqM) Est GFR (CKD-EPI)NonAf (>60 ml/min/1.73 sqM) Glucose (74-99) mg/dL Calcium (8.4-10.2) mg/dL Phosphorus (2.5-4.5) mg/dL Magnesium (1.6-2.3) mg/dL Total Bilirubin (0.2-1.3) mg/dL AST (17-59) U/L ALT (4-49) U/L Alkaline Phosphatase (38-126) U/L Total Protein (6.3-8.2) g/dL Albumin (3.5-5.0) g/dL Urine Color Urine Appearance (Clear) Urine pH (5.0-8.0) Ur Specific [place] (1.001-1.035) Urine Protein (Negative) Urine Glucose (UA) (Negative) Urine Ketones (Negative) Urine Blood (Negative) Urine Nitrite (Negative) Urine Bilirubin (Negative) Urine Urobilinogen (<2.0) mg/dL Ur Leukocyte Esterase (Negative) Influenza Type A (PCR) Not Detected (Not Detectd) Influenza Type B (PCR) Not Detected (Not Detectd) RSV (PCR) Not Detected (Not Detectd) SARS-CoV-2 (PCR) Not Detected (Not Detectd) - Radiology Data Radiology results: report reviewed (Chest x-rays negative for acute disease), image reviewed Disposition Clinical Impression: Altered mental status Disposition: HOME SELF-CARE Condition: Good Instructions (If sedation given, give patient instructions): Altered Mental Status (ED) Is patient prescribed a controlled substance at d/c from ED?: No Referrals: Margaret Da Silva MD [Primary Care Provider] - 1-2 days Decision Time: 06:45
[2022-02-05 03:48] VITALS: RESP 18; TEMP 98.2
[2022-02-05 04:08] LABS: Basophils # (A) 0.1 k/uL (0-0.2); Basophils % (A) 1 %; Eosinophils # (A) 0.2 k/uL (0-0.7); Eosinophils % (A) 1 %; HCT 42.9 % (39.0-53.0); HGB 13.3 gm/dL (13.0-17.5); Lymphocytes # (A) 1.7 k/uL (1.0-4.8); Lymphocytes % (A) 10 %; MCH 31.3 pg (25.0-35.0); MCV 100.8 fL (80.0-100.0); Mean Platelet Volume 7.7; Monocytes # (A) 1.2 k/uL (0-1.0); Monocytes % (A) 7 %; Neutrophils # (A) 13.3 k/uL (1.3-7.7); Neutrophils % (A) 80 %; Platelet Count 238 k/uL (150-450); RBC 4.26 m/uL (4.30-5.90); RDW 12.1 % (11.5-15.5); WBC 16.7 k/uL (3.8-10.6)
[2022-02-05 04:18] LABS: ALT 29 U/L (4-49); AST 40 U/L (17-59); African American GFR (CKD) >90 (>60 ml/min/1.73 sqM); Albumin 3.7 g/dL (3.5-5.0); Alkaline Phosphatase 180 U/L (38-126); Anion Gap 9 mmol/L; Blood Urea Nitrogen 13 mg/dL (9-20); Calcium 9.1 mg/dL (8.4-10.2); Carbon Dioxide 24 mmol/L (22-30); Chloride 104 mmol/L (98-107); Glucose 114 mg/dL (74-99); Magnesium 1.7 mg/dL (1.6-2.3); Non-African American GFR(CKD) 86 (>60 ml/min/1.73 sqM); Phosphorus 3.2 mg/dL (2.5-4.5); Potassium 4.2 mmol/L (3.5-5.1); Sodium 137 mmol/L (137-145); Total Bilirubin 0.6 mg/dL (0.2-1.3); Total Protein 7.3 g/dL (6.3-8.2)
--- NOTE | 2022-02-05 05:33 | XR ---
EXAMINATION TYPE: XR chest 1V portable DATE OF EXAM: 02/05/2022 COMPARISON: Chest x-ray September 05, 2021 HISTORY: Chest pain. TECHNIQUE: Single AP portable frontal upright view of the chest is obtained. FINDINGS: There is no suspicious focal air space opacity, pleural effusion, or pneumothorax seen cur rently. The cardiac silhouette size is within normal limits. Degenerative change left shoulder and s pine redemonstrated. IMPRESSION: No acute process.
[2022-02-05 06:10] LABS: Appearance,Urine Clear (Clear); Bilirubin,Urine Negative (Negative); Blood,Urine Negative (Negative); Color,Urine Yellow; Glucose,Urine (UA) Negative (Negative); Ketones,Urine Negative (Negative); Leukocyte Esterase,Urine Negative (Negative); Nitrite,Urine Negative (Negative); Protein,Urine Negative (Negative); Specific Gravity,Urine 1.019 (1.001-1.035); Urobilinogen,Urine <2.0 mg/dL (<2.0)
[2022-02-05 07:53] VITALS: BP 106/67; PULSE 116
== END 2022-02-05 08:36 | disposition home or self-care (01) ==
LOC: EC 03:39
DX: R41.82 Altered mental status, unspecified (principal); E11.9 Type 2 diabetes mellitus without complications; I10 Essential (primary) hypertension; E78.5 Hyperlipidemia, unspecified; Z20.822 Contact with and (suspected) exposure to COVID-19; F17.200 Nicotine dependence, unspecified, uncomplicated
CPT/HCPCS: 36415; 71045; 80053; 81003; 83735; 84100; 85025; 87636